=== PATIENT | male | born 1935 | race Caucasian/White ===

== ENCOUNTER 2017-11-03 10:55 | Inpatient (IN) | payer OTHER ==
[~2017-11-03] VITALS: Ht 170.2 cm; Wt 61.3 kg
--- NOTE | ~2017-11-03 | HC ---
[facility] [place] [address] CONSULTATION Name: ELDA GARCIA Room #: 211-P [facility] IN M.R.#: [id number] Admission: 11/03/17 Attend Phys: Nathaniel Tobias MD Discharge: 11/05/17 Date of : 34 Report #: [id number] THIS REPORT FOR: //name// CC: Nathaniel Bailey REASON FOR CONSULTATION: SVT and bradycardia. HISTORY OF PRESENT ILLNESS: The patient is an 82-year-old with no known cardiac history who presents after having a near syncopal episode. The patient reports that he was having a funny sensation in his chest and his stomach, stood up and felt like the room was going black. He almost passed out, but was able to catch himself at the last second. His daughter decided to bring him for further evaluation. In the Emergency Room, he has had EKGs showing that he is having intermittent atrial tachycardia with negative P waves in the inferior leads noted on the 12-lead EKG. He is having paroxysms of this. He did receive some IV metoprolol last night and had some bradycardia afterwards. Currently, his rates are okay, but he continues to have paroxysms of this atrial tachycardia. He has had some chest discomfort, which has now resolved. He denies any PND or orthopnea. He denies linda syncopal episodes, but has had near syncope. PAST MEDICAL HISTORY: No known heart disease. He has had some prostate surgery. ALLERGIES: None. HOME MEDICATIONS: Include Synthroid. SOCIAL HISTORY: Does not smoke. FAMILY HISTORY: Noncontributory, had a sister who had a pacemaker and had some complications related to this. REVIEW OF SYSTEMS: A 12-point review of systems was performed and was negative other than what I mentioned above. PHYSICAL EXAMINATION: VITAL SIGNS: Reviewed. GENERAL: No acute distress. HEENT: Oropharynx is clear. NECK: Supple, with no thyromegaly. HEART: Tachycardic, but regular. There are no murmurs, rubs, or gallops. LUNGS: Clear to auscultation bilaterally. ABDOMEN: Soft, nontender, nondistended with no hepatosplenomegaly. EXTREMITIES: No clubbing, cyanosis, edema. NEUROLOGIC: Cranial nerves 2-[address] [address] CONSULTATION Name: ELDA GARCIA Room #: 211-P [facility] IN M.R.#: [id number] Admission: 11/03/17 Attend Phys: Nathaniel Tobias MD Discharge: 11/05/17 Date of : 34 Report #: [id number] LABORATORY DATA: White count 8.9, hemoglobin 13.7, platelets 270. Chemistries: Sodium 138, potassium 4.1, creatinine 1.8. Troponin was normal. TSH was 5.6. His nuclear stress test today shows normal ejection fraction and no ischemia. ASSESSMENT: 1. Atrial tachycardia. 2. Presyncope. 3. Possible symptomatic bradycardia with sick sinus syndrome. PLAN: We will initiate low-dose beta-blockers to see if we can suppress his atrial tachycardia. If he develops bradycardia, then may need to consider a pacemaker. If we cannot control his rhythms with beta-blockers, then we may need to consider initiation of a low-dose antiarrhythmic such as flecainide or amiodarone. We will continue to follow. <ELECTRONICALLY SIGNED> By: Julio César Fletcher MD 11/07/17 1616 1314 1516 Julio César Fletcher MD /nt
--- NOTE | ~2017-11-03 | EKG ---
[place] [address] [facility] [place] [address] ELECTROCARDIOGRAM REPORT Name: ELDA GARCIA Room #: 211-P ADM IN M.R.#: [id number] Admission: 11/03/17 Attend Phys: Nathaniel Tobias MD Discharge: Date of : 34 Report #: [id number] THIS REPORT FOR: //name// [facility] Test Date: 2017-11-04 Test Time: 00:20:07 Pat Name: ELDA GARCIA Department: Room: 211 P Gender: M Sander Portable Machine: mfrahm : 1935 Requested By: Jacquie Arteaga Order Number: [id number] MD: Joseph Reyes Measurements Intervals [place] Rate: 142 P: 80 WA: 89 QRS: -69 QRSD: 74 T: 78 QT: 287 QTc: 441 Interpretive Statements Supraventricular tachycardia Abnormal R-wave progression, early transition Inferior infarct, old Compared to ECG 11/03/2017 11:04:11 Supraventricular tachycardia is replaced sinus rhythm Premature ventricular complexes are no longer present Nonspecific change in the ST and T-wave segments Electronically Signed On 11-04-2017 8:55:41 CLERK SECRETARY by Joseph Reyes [email or web address] <ELECTRONICALLY SIGNED> By: Joseph Reyes MD, [facility] 11/04/17 0855 0020 0020 Joseph Reyes MD, [facility] /EPI
--- NOTE | ~2017-11-03 | EKG ---
[place] [address] [facility] [place] [address] ELECTROCARDIOGRAM REPORT Name: ELDA GARCIA Room #: 211-P ADM IN M.R.#: [id number] Admission: 11/03/17 Attend Phys: Nathaniel Tobias MD Discharge: Date of : 34 Report #: [id number] THIS REPORT FOR: //name// [facility] Test Date: 2017-11-04 Test Time: 06:13:58 Pat Name: ELDA GARCIA Department: Room: 211 P Gender: M Computer Systems Consultant: GR : 1935 Requested By: Jacquie Arteaga Order Number: [id number] MD: Joseph Reyes Measurements Intervals [place] Rate: 74 P: 66 SD: 156 QRS: -42 QRSD: 86 T: 54 QT: 366 QTc: 406 Interpretive Statements Sinus rhythm Atrial premature complex Left axis deviation Low voltage, extremity leads Early R-wave progression Small inferior Q waves Compared to ECG 11/03/2017 11:04:11 Sinus rhythm has replaced supraventricular tachycardia Electronically Signed On 11-04-2017 8:59:38 FOOD AND BEVERAGE OPERATIONS MANAGER by Joseph Reyes [email or web address] <ELECTRONICALLY SIGNED> By: Joseph Reyes MD, [facility] 11/04/17 0859 0613 2 Joseph Reyes MD, [facility] /EPI
--- NOTE | ~2017-11-03 | HC ---
[facility] [place] [address] CONSULTATION Name: ELDA GARCIA Room #: 211-P ADM IN M.R.#: [id number] Admission: 11/03/17 Attend Phys: Nathaniel Tobias MD Discharge: Date of : 34 Report #: [id number] THIS REPORT FOR: //name// CC: Nathaniel Bailey REASON FOR CONSULTATION: Chest pain and tachycardia. HISTORY OF PRESENT ILLNESS: The patient is an 82-year-old gentleman with a fairly limited past medical history. On Friday evening, he felt nauseated, he got up to go to the bathroom and transiently lost consciousness. The nausea was associated with low sternal chest discomfort, all of which lasted about 60 minutes. Same thing happened on Friday morning. His family physician, Dr. Rogelio Bailey instructed him to go to the emergency department. He has had intermittent epigastric and low sternal chest pain with acid brash. Since admission to the hospital, he has had intermittent tachycardia. This appears to be an ectopic atrial tachycardia, rates as high as 160 beats per minute. Throughout the evening, he has received a variety of medications including hydralazine for systolic hypertension. He has also received IV metoprolol. In addition to this tachycardia, he has had documented heart rates in the 40s with symptomatic hypotension with diaphoresis and near syncope. This was not necessarily related to timing of medications. An EKG in the presence of this tachycardia demonstrated a short AR interval, heart rate of 142, early R-wave progression and leftward axis. The P-wave morphology is clearly different than his sinus rhythm P-wave morphology that was noted on presentation. He denies heart failure symptoms including orthopnea, paroxysmal nocturnal dyspnea, or lower extremity edema. He did have a history of prior syncope with Flomax in the past. ALLERGIES: No known drug allergies. MEDICATIONS: Levothyroxine 75 mcg daily. PAST MEDICAL HISTORY: Medical records have been reviewed and include a history of herniorrhaphy, prostate cancer with surgery, and hemorrhoidectomy. SOCIAL HISTORY: He is a nonsmoker, nondrinker. He is a retired missionary. FAMILY HISTORY: Sister has a pacemaker. Father had a stroke. REVIEW OF SYSTEMS: All systems negative except as that noted above. PHYSICAL EXAMINATION: GENERAL: Reveals a pleasant gentleman, in no distress. VITAL SIGNS: Blood pressure is 149/86, heart rate is 66 and regular, he is afebrile. HEENT: There are neither xanthelasma, subcutaneous xanthomata, oral mucosal or [facility] [address] [place] [address] CONSULTATION Name: ELDA GARCIA Room #: 211-P [facility] IN [facility]#: [id number] Admission: 11/03/17 Attend Phys: Nathaniel Tobias MD Discharge: Date of : 34 Report #: [id number] digital cyanosis or kyphoscoliosis present. CHEST: Clear to auscultation and percussion. CARDIAC: Regular rate and rhythm with normal S1, S2. No murmurs or rubs. ABDOMEN: Soft and nontender. EXTREMITIES: Without cyanosis, clubbing or edema. Radial pulses are 2+. NEUROLOGIC: He is alert with a nonfocal exam. LABORATORY DATA: EKG as detailed above. Sodium 138, potassium 4.1, creatinine 1.8, which appears at or near his baseline, he had a creatinine of 2.9 in September 2011. Serial troponin levels are 0. Liver function studies are normal. White count 8.9, hemoglobin 13, hematocrit 40, and platelet count 270. TSH 5.697. C-spine images demonstrated [id number]-pt-okyuzr degenerative disk disease at the C5 and C6. There is moderate neural foraminal narrowing. Chest x-ray is normal. IMPRESSION: 1. Low chest pain with mixed features for ischemia, many features sound suspicious for reflux type symptomatology. 2. Tachycardia, probably ectopic atrial tachycardia; sick sinus syndrome. 3. Near syncope, possible related to #2 above. 4. Hypothyroidism, on replacement. 5. Reflux disease. 6. Cervical radiculopathy RECOMMENDATIONS: 1. Echocardiogram with Doppler. 2. Pharmacologic stress testing. 3. Consider electrophysiologic evaluation. Low dose suppressant therapy with either beta blockade or calcium channel blockade. His tachycardia in association with symptomatic bradycardia suspicious for an underlying sick sinus syndrome. Thank you for asking me to participate in the patient's care. <ELECTRONICALLY SIGNED> By: Joseph Reyes MD, FACC 11/05/17 0813 0717 0757 Joseph Reyes MD, FACC /nt
--- NOTE | ~2017-11-03 | EKG ---
[place] [address] [place] [address] ELECTROCARDIOGRAM REPORT Name: ELDA GARCIA Room #: REG BRENDAN Ojeda#: [id number] Admission: 11/03/17 Attend Phys: Discharge: Date of : 34 Report #: [id number] THIS REPORT FOR: //name// [facility] ED Test Date: 2017-11-03 Test Time: 11:04:11 Pat Name: ELDA GARCIA Department: Room: Gender: Laundry Housekeeping Aide: BRIE : 1935 Requested By: Teri Ring Order Number: [id number] MD: Julio César Fletcher Measurements Intervals [place] Rate: 90 P: 66 CT: 146 QRS: -40 QRSD: 85 T: 59 QT: 364 QTc: 446 Interpretive Statements Sinus rhythm Multiple ventricular premature complexes Probable left atrial enlargement Left axis deviation Low voltage, extremity leads Electronically Signed On 11-03-2017 12:02:11 BOREMATIC MACHINE OPERATOR by Julio César Fletcher [email or web address] <ELECTRONICALLY SIGNED> By: Julio César Fletcher MD 11/03/17 1202 1104 1104 MD KHOA Gonzalez
--- NOTE | ~2017-11-03 | 2DMMODE ---
[facility] [address] [place] [address] 2 D/M-MODE ECHOCARDIOGRAM Name: ELDA GARCIA Room #: 211-P ADM IN M.R.#: [id number] Admission: 11/03/17 Attend Phys: Nathaniel Tobias MD Discharge: Date of : 34 Date of Service: 11/04/17 1204 Report #: [id number] THIS REPORT FOR: //name// APPROVED REPORT Study performed: 11/04/2017 11:12:56 EXAM: Comprehensive 2D, Doppler, and color-flow Echocardiogram Patient Location: [facility] Room #: 211 Status: routine BSA: 1.70 HR: 127 bpm BP: 150/98 mmHg Rhythm: Tachycardia Other Information Study Quality: Good Indications Tachycardia Chest Pain 2D Dimensions RVDd: 30.46 mm LVEF(%): 70.44 (>50%) IVSd: 10.44 (7-11mm) LVOT Diam: 20.73 (18-24mm) LVDd: 36.49 mm PWd: 10.23 (7-11mm) Ascending Ao: 31.86 (22-36mm) LVDs: 22.22 (25-40mm) Aortic Root: 31.54 mm Brizuela's LVEF: 70.44 % Volumes Left Atrial Volume (Systole) Single Plane 4CH: 27.45 mL Single Plane 2CH: 23.51 mL LA ESV Index: 15.00 mL/m2 Aortic Valve AoV Peak Jt.: 2.07 m/s AO Peak Gr.: 17.55 mmHg Pulmonary Valve PV Peak Jt.: 2.06 m/s PV Peak Gr.: 17.05 mmHg Tricuspid Valve [facility] [address] [place] [address] 2 D/M-MODE ECHOCARDIOGRAM Name: ELDA GARCIA Room #: 211-P ADM IN .R.#: [id number] Admission: 11/03/17 Attend Phys: Nathaniel Tobias MD Discharge: Date of : 34 Date of Service: 11/04/17 1204 Report #: [id number] TR Peak Jt.: 2.81 m/s RAP Estimate: 5.00 mmHg TR Peak Gr.: 31.65 mmHg PA Pressure: 37.00 mmHg Left Ventricle The left ventricle is normal size. There is normal LV segmental wall motion. There is normal left ventricular wall thickness. Left ventricular systolic function is hyperdynamic. Mild LVOT gradient, probably from the hyperdynamic LV function (2.6m/sec) LVEF is >70%. This study is not technically sufficient to allow evaluation of the LV diastolic function. Right Ventricle The right ventricle is normal size. The right ventricular systolic function is normal. Atria The left atrium size is normal. The right atrium size is normal. Aortic Valve The Aortic valve is mildly sclerotic trileaflet. No aortic regurgitation is present. There is no aortic valvular stenosis. Mitral Valve The mitral valve is normal in structure. Mild to moderate mitral regurgitation. Tricuspid Valve The tricuspid valve is normal in structure. Trace tricuspid regurgitation. Estimated PAP is 35-40mmHg. Pulmonic Valve The pulmonary valve is normal in structure. There is no pulmonic valvular regurgitation. Great Vessels The aortic root is normal in size. The ascending aorta is normal in size. IVC is normal in size and collapses >50% with inspiration. Pericardium There is no pericardial effusion. <Conclusion> [facility] [address] [place] [address] 2 D/M-MODE ECHOCARDIOGRAM Name: ELDA GARCIA Room #: 211-P ADM IN M.R.#: [id number] Admission: 11/03/17 Attend Phys: Nathaniel Tobias MD Discharge: Date of : 34 Date of Service: 11/04/17 1204 Report #: [id number] Left ventricular systolic function is hyperdynamic. Mild LVOT gradient, probably from the hyperdynamic LV function (2.6m/sec) There is normal LV segmental wall motion. LVEF is >70%. The aortic valve is mildly sclerotic trileaflet. No aortic regurgitation or stenosis The mitral valve is normal in structure. Mild to moderate mitral regurgitation. Pulmonary arter pressure of 35-40mmHg There is no pericardial effusion. <ELECTRONICALLY SIGNED> By: Joseph Reyes MD, [facility] 11/04/17 1204 120 120 Joseph Reyes MD, FAC /INF
[~2017-11-03 10:55] MED LIST: ACETAMINOPHEN325 M1 PO; CEPHALEXIN 500500 M1; CIPROFLOXACIN500 M3 PO; JALYN 0.5-0.41 EACH PO; NOHOMEMEDICATIONS
[2017-11-03 11:07] VITALS: BP 160/77
[2017-11-03] MEDS ORDERED: SYNTHROID75 MCG PO (11:16)
[2017-11-03 11:20] LABS: ABSOLUTE NEUTROPHILS 5.3 thou/uL (1.4-8.2); EOSINOPHILS 2.5 % (0.0-3.0); HEMATOCRIT 40.7 % (42.0-52.0); HEMOGLOBIN 13.7 gm/dL (14.0-18.0); LYMPHOCYTES 31.6 % (24.0-44.0); MCHC 33.8 g/dL (28.0-37.0); MCV 76.9 fL (80.0-100.0); MONOCYTES 6.1 % (1.0-8.0); PLATELET COUNT 270 thou/uL (150-400); POLYS 58.8 % (36.0-66.0); RBC 5.29 mil/uL (4.50-6.00); RDW 16.2 % (10.5-14.5); WBC 8.9 thou/uL (4.0-11.0)
[2017-11-03 11:32] LABS: ANION GAP 9 mmol/L (7-16); BUN 22 mg/dL (7-18); CALCIUM 9.2 mg/dL (8.5-10.1); CHLORIDE 100 mmol/L (98-107); CO2 26 mmol/L (21-32); CREATININE 1.9 mg/dL (0.7-1.3); GLUCOSE 103 mg/dL (74-106); POTASSIUM 3.8 mmol/L (3.5-5.1); SODIUM 135 mmol/L (136-145)
[2017-11-03 11:42] LABS: TROPONIN-I < 0.04 ng/mL (<0.06)
[2017-11-03 16:42] VITALS: BP 115/65
[2017-11-03 20:38] VITALS: BP 122/59
[2017-11-03 21:13] VITALS: BP 164/82
[2017-11-03 23:55] VITALS: BP 158/103
[2017-11-04 00:29] LABS: CREATININE 1.8 mg/dL (0.7-1.3); MAGNESIUM 2.2 mg/dL (1.8-2.4); POTASSIUM 4.1 mmol/L (3.5-5.1)
[2017-11-04 03:26] LABS: URINE BILIRUBIN NEGATIVE (Negative); URINE BLOOD TRACE (Negative); URINE CLARITY CLEAR; URINE COLOR YELLOW; URINE GLUCOSE-RANDOM* NEGATIVE (Negative); URINE KETONES NEGATIVE (Negative); URINE LEUKOCYTES-REFLEX NEGATIVE (Negative); URINE NITRITE-REFLEX NEGATIVE (Negative); URINE PROTEIN (DIPSTICK) NEGATIVE (Negative); URINE UROBILINOGEN 0.2 E.U./dl (0.2-1.0)
[2017-11-04 04:49] VITALS: BP 149/86
[2017-11-04 07:30] VITALS: BP 150/98
[2017-11-04 12:35] VITALS: BP 140/176; BP 140/76
[2017-11-04 15:45] VITALS: BP 151/85
[2017-11-04 20:18] VITALS: BP 121/69
[2017-11-05 05:12] VITALS: BP 120/69
[2017-11-05 07:19] VITALS: BP 140/71
[2017-11-05] MEDS ORDERED: METOPROLOL SUCC50 MG PO (09:54)
[2017-11-05 11:01] VITALS: BP 130/51
[2017-11-05 14:59] VITALS: BP 130/51
== END 2017-11-05 15:08 | disposition home or self-care (01) | DRG 310 ==
LOC: ER 10:55 → EROBS 12:38 → 2N 12:38
PROVIDERS: Emergency Medicine; Hospitalist; Nurse Practitioner Acute Care
DX: I47.1 Supraventricular tachycardia (principal); I49.5 Sick sinus syndrome; E03.9 Hypothyroidism, unspecified; K21.9 Gastro-esophageal reflux disease without esophagitis; M54.12 Radiculopathy, cervical region; N18.9 Chronic kidney disease, unspecified; Z79.899 Other long term (current) drug therapy; Z82.49 Family history of ischemic heart disease and other diseases of the circulatory system; Z82.3 Family history of stroke
CPT/HCPCS: 10081

== ENCOUNTER 2018-03-22 15:21 | Emergency (ER) | payer OTHER ==
[~2018-03-22] VITALS: Ht 170.2 cm; Wt 59.0 kg
--- NOTE | ~2018-03-22 | EKG ---
[address] [address] ELECTROCARDIOGRAM REPORT Name: ELDA GARCIA Room #: DEP BRENDAN Ojeda#: [id number] Admission: 03/22/18 Attend Phys: Discharge: 03/22/18 Date of : 34 Report #: [id number] THIS REPORT FOR: //name// [facility] ED Test Date: 2018-03-22 Test Time: 15:32:08 Pat Name: ELDA GARCIA Department: Room: Gender: M Jewelry Appraiser: MARISSA : 1935 Requested By: Irma Gregory Order Number: [id number] MD: Julio César Fletcher Measurements Intervals [place] Rate: 59 P: 50 UT: 140 QRS: -16 QRSD: 94 T: 51 QT: 400 QTc: 397 Interpretive Statements Sinus rhythm Borderline left axis deviation Abnormal R-wave progression, early transition Compared to ECG 11/04/2017 06:13:58 Atrial premature complex(es) no longer present Inferior Q waves no longer present Q waves no longer present Electronically Signed On 03-23-2018 19:48:08 CDT by Julio César Fletcher [email or web address] <ELECTRONICALLY SIGNED> By: Julio César Fletcher MD 03/23/18 1948 153 153 Julio César Fletcher MD /EPI
[~2018-03-22 15:21] MED LIST changes: +METOPROLOL SUCC50 MG PO; +SYNTHROID75 MCG PO
[2018-03-22 17:12] LABS: ABSOLUTE NEUTROPHILS 9.7 thou/uL (1.4-8.2); BASOPHILS 0.6 % (0.0-2.0); EOSINOPHILS 1.6 % (0.0-3.0); HEMATOCRIT 32.9 % (42.0-52.0); HEMOGLOBIN 11.2 gm/dL (14.0-18.0); LYMPHOCYTES 24.9 % (24.0-44.0); MCH 25.9 pg (26.0-34.0); MCHC 34.1 g/dL (28.0-37.0); MCV 75.9 fL (80.0-100.0); MONOCYTES 5.8 % (1.0-8.0); PLATELET COUNT 350 thou/uL (150-400); POLYS 67.1 % (36.0-66.0); RBC 4.34 mil/uL (4.50-6.00); RDW 16.2 % (10.5-14.5); WBC 14.5 thou/uL (4.0-11.0)
[2018-03-22 17:19] LABS: ANION GAP 8 mmol/L (7-16); BUN 29 mg/dL (7-18); CALCIUM 8.9 mg/dL (8.5-10.1); CHLORIDE 99 mmol/L (98-107); CO2 25 mmol/L (21-32); CREATININE 1.4 mg/dL (0.7-1.3); GLUCOSE 108 mg/dL (74-106); POTASSIUM 4.1 mmol/L (3.5-5.1); SODIUM 132 mmol/L (136-145)
[2018-03-22 17:28] LABS: TROPONIN-I < 0.04 ng/mL (<0.06)
[2018-03-22] MEDS ORDERED: ZPAK PO (18:56)
[2018-03-22] MEDS ORDERED: ULTRAM 50MG TAB50 MG PO (18:57)
== END 2018-03-22 19:55 | disposition home or self-care (01) ==
LOC: ER 15:21
PROVIDERS: Emergency Medicine
DX: J18.9 Pneumonia, unspecified organism (principal)

== ENCOUNTER 2018-03-25 10:51 | Inpatient (IN) | payer OTHER ==
[~2018-03-25] VITALS: Ht 170.2 cm; Wt 56.7 kg
--- NOTE | ~2018-03-25 | PATH ---
[facility] [address] [place] [address] PATHOLOGY RPT PROCEDURE Name: ELDA GARCIA Room #: 220-P DIS IN M.R.#: [id number] Admission: 03/25/18 Date of : 34 Discharge: 03/28/18 Report #: [id number] Path Case #: [id number] [facility] Accession Number: [id number] . 01 Material submitted: . PART A: BX DUODENUM R/O CELIAC PART B: GASTRIC BX R/O H. PYLORI PART C: BX FLAT LESION OF PROXIMAL BODY OF STOMACH PART D: BX DISTAL ESOPHAGUS R/O TEJEDA'S . 01 Clinical history: . Pre-OP DX: Dysphagia Post-OP DX: Distal esophagitis, flattened mucosal lesion . 02 Diagnosis: A. Small bowel mucosa, duodenum, rule out celiac, endoscopic biopsy: - No significant diagnostic abnormalities present. - Negative for villous blunting or increase in intraepithelial lymphocytosis. . B. Gastric mucosa, gastric rule out H. pylori, endoscopic biopsy: - Focal mild chronic inflammation, consistent with nonspecific changes. - Negative for intestinal metaplasia or atrophy. - Negative for Helicobacter pylori (properly controlled immunohistochemical stain performed). . C. Gastric mucosa, flat lesion of proximal body of stomach, endoscopic biopsy: - No significant diagnostic abnormalities present; focal mild chronic inflammation identified. - Negative for intestinal metaplasia, atrophy or dysplasia. . D. Gastroesophageal mucosa, distal esophagus rule out Tejeda's, endoscopic biopsy: - Gastric fundic-type mucosa with moderate to marked chronic inflammation. - Negative for intestinal metaplasia (Tejeda's metaplasia) or dysplasia. - Squamous mucosa with mild esophagitis. (IUV:mark; 03/27/2018) QMS/03/27/2018 . 02 Electronically signed: . Gege Galdamez MD, Pathologist NPI- [id number] . 01 Gross description: . A. Received in formalin labeled "Elda Garcia, BX duodenum, rule out celiac," are 2 segments of humphrey soft tissue measuring 0.8 x 0.3 x 0.2 [place] [address] PATHOLOGY RPT PROCEDURE Name: ELDA GARCIA Room #: 220-P [facility] IN M.R.#: [id number] Admission: 03/25/18 Date of : 34 Discharge: 03/28/18 Report #: [id number] Path Case #: [id number] aggregate dimensions and ranging from 0.3 to 0.5 cm in maximum dimension. The specimen is submitted entirely in cassette A1. . B. Received in formalin labeled "Elda Garcia, gastric BX, rule out H. pylori," are 2 segments of humphrey soft tissue measuring 0.9 x 0.3 x 0.2 cm in aggregate dimensions and ranging from 0.3 to 0.6 cm in maximum dimension. The specimen is submitted entirely in cassette B1. . C. Received in formalin labeled "Elda Garcia, BX flat lesion of proximal body of stomach," are 2 segments of humphrey soft tissue measuring 0.8 x 0.2 x 0.2 cm in aggregate dimensions and ranging from 0.3 to 0.5 cm in maximum dimension. The specimen is submitted entirely in cassette C1. . D. Received in formalin labeled "Elda Garcia, BX distal esophagus, rule out Tejeda's," is a single segment of humphrey soft tissue measuring 0.3 cm in maximum dimension. The specimen is entirely submitted in cassette D1. (TSD; 03/26/2018) TOB/TOB . 02 Pathologist provided ICD-10: K29.50, K20.9 . 02 CPT . 051434, 106614, 288164, 256859 Performed at: [address], [place], [place] [id number] MD Timmy Earl MD Phone: [phone] Performed at: [address] [id number] MD Gege Galdamez MD Phone: [phone]
--- NOTE | ~2018-03-25 | EKG ---
[address] [place] [address] ELECTROCARDIOGRAM REPORT Name: ELDA GARCIA Room #: 423-1 ADM IN M.R.#: [id number] Admission: 03/25/18 Attend Phys: Michael Shaikh Discharge: Date of : 34 Report #: [id number] THIS REPORT FOR: //name// [facility] ED Test Date: 2018-03-25 Test Time: 12:51:47 Pat Name: ELDA GARCIA Department: Room: Gender: M Tapping Machine Operator Automatic: SENTHIL : 1935 Requested By: Joanna Pfeiffer Order Number: [id number] MD: Joseph Reyes Measurements Intervals [place] Rate: 60 P: 51 MA: 146 QRS: -12 QRSD: 95 T: 44 QT: 427 QTc: 427 Interpretive Statements Sinus rhythm Early R-wave progression Compared to ECG 03/22/2018 15:32:08 No significant change was found Electronically Signed On 03-26-2018 8:11:40 CDT by Joseph Reyes [email or web address] <ELECTRONICALLY SIGNED> By: Joseph Reyes MD, [facility] 03/26/18 0811 D: [id number] 125 Joseph Reyes MD, FACC /EPI
--- NOTE | ~2018-03-25 | P ---
[facility] [address] [place] [address] PROCEDURE REPORT Name: ELDA GARCIA Room #: 220-P [facility] IN M.R.#: [id number] Admission: 03/25/18 Attend Phys: Michael Shaikh Discharge: Date of : 34 Report #: [id number] THIS REPORT FOR: //name// CC: Michael Wall MD DATE OF SERVICE: 03/28/2018 PROCEDURE PERFORMED: Colonoscopy. HISTORY OF PRESENT ILLNESS: The patient is an 83-year-old male who presented with nausea, vomiting, right flank pain on 03/25/2018. He has now undergone ultrasound of the abdomen and PIPIDA scan. Ultrasound is showing numerous hepatic masses, majority represent simple cysts. PIPIDA scan was negative. MRI of the abdomen showed possible hydronephrosis, multiple cysts within the liver, small pleural effusions, bladder distention. CT scan of the abdomen and pelvis performed shows scarring in the right inguinal region. The patient has had a previous inguinal hernia repair. There was a small right inguinal hernia. The patient also underwent an upper endoscopy by my partner, which was essentially negative, but did show some erosive esophagitis. Biopsies are pending at this time. The patient has never had a colonoscopy. Plan is for colonoscopy today. DESCRIPTION OF PROCEDURE: The risks and benefits of the procedure were explained to the patient, those risks including but not limited to bleeding, perforation, the risk of sedation. He understood these risks and gave informed consent. Sedation was given using propofol per anesthesia. Next, a digital rectal exam was initially performed, which showed an enlarged prostate, but otherwise negative. Next, using a standard Olympus colonoscope, the scope was placed in the patient's anus and advanced under direct vision to the cecum. The overall prep was excellent. The cecum and ileocecal valve were normal in appearance. Terminal ileum was intubated and normal in appearance. The ascending, transverse, descending and sigmoid colon were all normal. The rectal mucosa was normal, small nonbleeding internal hemorrhoids were noted. The scope was then withdrawn and the procedure terminated. The patient tolerated the procedure well. IMPRESSION: 1. Small internal hemorrhoids. 2. Otherwise normal colonoscopy. RECOMMENDATIONS: Etiology of nausea, vomiting, abdominal pain is unclear at this time. As noted above, the patient has had a several imaging here during this hospitalization showing hepatic cysts, some mild changes in the kidneys, [address] [address] PROCEDURE REPORT Name: ELDA AGRCIA Room #: 220-P ADM IN M.R.#: [id number] Admission: 03/25/18 Attend Phys: Michael Shaikh Discharge: Date of : 34 Report #: [id number] small right inguinal hernia. At this point, the plan is to advance her diet as tolerated. <ELECTRONICALLY SIGNED> By: Sincere Gale MD 03/28/18 1348 0931 1222 Sincere Gale MD /sully
[~2018-03-25 10:51] MED LIST changes: +ULTRAM 50MG TAB50 MG PO; +ZPAK PO
[2018-03-25 10:54] VITALS: BP 164/95
[2018-03-25] MEDS ORDERED: PRILOSEC 20 MG20 MG PO (10:58)
[2018-03-25] MEDS ORDERED: TAMSULOSIN HCL0.4 MG PO (10:58)
[2018-03-25 11:49] LABS: ABSOLUTE NEUTROPHILS 8.3 thou/uL (1.4-8.2); BASOPHILS 0.6 % (0.0-2.0); EOSINOPHILS 0.2 % (0.0-3.0); HEMATOCRIT 38.5 % (42.0-52.0); HEMOGLOBIN 13.1 gm/dL (14.0-18.0); LYMPHOCYTES 20.7 % (24.0-44.0); MCH 25.9 pg (26.0-34.0); MCHC 34.1 g/dL (28.0-37.0); MCV 76.1 fL (80.0-100.0); MONOCYTES 3.5 % (1.0-8.0); PLATELET COUNT 406 thou/uL (150-400); RBC 5.07 mil/uL (4.50-6.00); RDW 16.6 % (10.5-14.5); WBC 11.1 thou/uL (4.0-11.0)
[2018-03-25 11:59] LABS: CALCIUM 9.7 mg/dL (8.5-10.1); CREATININE 1.5 mg/dL (0.7-1.3)
[2018-03-25 12:05] LABS: ALBUMIN 3.8 g/dL (3.4-5.0); TOTAL BILIRUBIN 0.8 mg/dL (<0.1-1.0)
[2018-03-25 13:14] LABS: URINE BLOOD 1+ (Negative); URINE CLARITY CLEAR; URINE COLOR YELLOW; URINE GLUCOSE-RANDOM* NEGATIVE (Negative); URINE KETONES 1+ (Negative); URINE LEUKOCYTES-REFLEX NEGATIVE (Negative); URINE NITRITE-REFLEX NEGATIVE (Negative); URINE PROTEIN (DIPSTICK) TRACE (Negative); URINE SPECIFIC GRAVITY 1.025 (1.005-1.035); URINE UROBILINOGEN 0.2 E.U./dl (0.2-1.0)
[2018-03-25 13:17] LABS: ICTOTEST (BILI CONFIRMATORY) Negative (Negative); URINE BILIRUBIN NEGATIVE (Negative)
[2018-03-25 13:24] LABS: SQUAMOUS 0-3 Few /LPF (0-3)
[2018-03-25 13:25] LABS: CASTS None Seen /LPF (None Seen); MUCUS 4-6 Moderate strn/LPF (None Seen); URINE WBC-REFLEX 0-5 Rare /HPF (0-5)
[2018-03-25 13:26] LABS: BACTERIA-REFLEX None Seen /HPF (None Seen); CRYSTALS None Seen /LPF (None Seen); URINE RBC 0-2 Rare /HPF (0-2)
[2018-03-25 13:36] VITALS: BP 150/69
[2018-03-25 13:41] VITALS: BP 150/69
[2018-03-25 18:30] VITALS: BP 150/69
[2018-03-25 19:57] VITALS: BP 140/71
[2018-03-26 04:00] VITALS: BP 122/54
[2018-03-26 09:42] VITALS: BP 135/70
[2018-03-26 17:24] VITALS: BP 141/83
[2018-03-26 20:00] VITALS: BP 130/70
[2018-03-27 08:20] VITALS: BP 157/72
[2018-03-27 10:40] VITALS: BP 157/72
[2018-03-27 11:35] LABS: ALBUMIN 2.8 g/dL (3.4-5.0); CALCIUM 8.2 mg/dL (8.5-10.1); CREATININE 1.4 mg/dL (0.7-1.3); POTASSIUM 3.5 mmol/L (3.5-5.1); TOTAL BILIRUBIN 0.5 mg/dL (<0.1-1.0); TOTAL PROTEIN 6.9 g/dL (6.4-8.2)
[2018-03-27 16:45] VITALS: BP 141/61
[2018-03-27 20:30] VITALS: BP 178/97
[2018-03-28 09:45] VITALS: BP 153/79
[2018-03-28] MEDS ORDERED: FLOMAX0.4 MG PO (09:55)
[2018-03-28 10:15] VITALS: BP 140/103
== END 2018-03-28 14:37 | disposition home or self-care (01) | DRG 380 ==
LOC: ER 10:51 → EROBS 13:25 → 4E 13:25 → SICU 03-27 20:29
PROVIDERS: Nurse Practitioner; Physician Assistant
DX: K22.10 Ulcer of esophagus without bleeding (principal); J69.0 Pneumonitis due to inhalation of food and vomit; N13.30 Unspecified hydronephrosis; Z68.1 Body mass index [BMI] 19.9 or less, adult; K76.89 Other specified diseases of liver; T17.920A Food in respiratory tract, part unspecified causing asphyxiation, initial encounter; N18.9 Chronic kidney disease, unspecified; E86.0 Dehydration; K64.8 Other hemorrhoids; I12.9 Hypertensive chronic kidney disease with stage 1 through stage 4 chronic kidney disease, or unspecified chronic kidney disease; N40.0 Benign prostatic hyperplasia without lower urinary tract symptoms; F17.210 Nicotine dependence, cigarettes, uncomplicated; K21.9 Gastro-esophageal reflux disease without esophagitis; J44.9 Chronic obstructive pulmonary disease, unspecified; R13.10 Dysphagia, unspecified; M62.84 Sarcopenia; R63.4 Abnormal weight loss; E03.9 Hypothyroidism, unspecified; Z90.49 Acquired absence of other specified parts of digestive tract
CPT/HCPCS: 10183; 15002; 62110; 62900; 70005